=== PATIENT | female | born 1960 ===

== ENCOUNTER 2020-04-07 13:37 | Inpatient (IN) | payer MEDICARE, MEDICAID ==
[~2020-04-07] VITALS: Ht 167.6 cm; Wt 70.0 kg
[2020-04-07] MEDS ORDERED: mag hydrox/Alum hydrox/simeth 30ml oral suspension PO PRN (14:05)
[2020-04-07] MEDS ORDERED: loperamide 2mg capsule PO PRN (14:05)
[2020-04-07] MEDS ORDERED: acetaminophen 325mg tablet PO PRN (14:05)
[2020-04-07 15:59] VITALS: BP 166/86
[2020-04-07] MEDS ORDERED: NO HOME MEDS (16:08)
[2020-04-07] MEDS ORDERED: pneumococcal 23-VAL P-sac vacc 25 mcg/0.5ml vial IMVAC ONE (16:15)
--- NOTE | 2020-04-07 17:00 | NUR ---
Pt admitted at 1405 on a 5150 for grave disability from the [facility] in [place]. A welfare check found her filthy with no food or water in a trailer. Pt has been at the crisis center for a few days and apparently has cleared a bit. Pt denies suicidal thoughts. Pt does endorse some depression and anxiety and becomes tearful at times during interview. Pt denies hallucinations. Pt extremely delusional and its hard to decipher what is real and what is not. Pt is suspicious and paranoid a bit, thinking she's on a secret mission that she can't talk about. Pt cooperative with admission process.
[2020-04-07] MEDS ORDERED: NICOTINE POLACRILEX 2 MG LOZENGE BC PRN (17:40)
[2020-04-07] MEDS: nicotine 21mg patch - 24 hr TD SCH (18:18)
[2020-04-07 20:03] VITALS: BP 150/86
[2020-04-07] MEDS: LORazepam 1 MG tablet PO PRN (21:13)
--- NOTE | 2020-04-08 00:02 | NUR ---
Nursing Progress Note: Trice Legal hold: 5150 Client on involuntary status for GD/DTS. Report received from KARLOS Pérez with use of SBAR. Why are they here: Pt admitted for grave disability from the [facility] in [place]. A welfare check found her filthy with no food or water in a trailer. Pt has been at the crisis center for a few days and apparently has cleared a bit. Pt is unable to formulate a plan for food or water. She was confused and disoriented when officers contacted her with well check. Pt voices paranoid and grandiose delusions about being in a secret mission but not being able to talk about it. Assessment What has happened this shift: Pt was in her room sleeping during shift change. Pt was cooperative during 1:1 physical assessment. She denies any A/H, V/H, or depression. Pt appears somewhat anxious and emotional. Becomes teary and when asked what was making her anxious or emotional, she states I just feel really happy. She says this as she begins to cry again. She also talks about his dad and how he misses him. Ruminates about him some more. States that she doesnt think his alive any more. We went to war together and he never made it back. She says that she went to [place] war with her dad and she hasnt seen him since then. She continues to be emotional and tearful. Ativan was provided with effectiveness. She states that she is here to get medical help appears to have very poor insight. Pt was observed out of her room in community area for some time watching TV before going to sleep. S/I, H/I: Denies A/VH: Denies Sleep: Currently sleeping, see sleep assessment for total hours ADL's: Independent Group attendance: None during slitter processed film Were meds taken: Yes, only prns Any med S/E: none noter or reported Mental Status Exam Appearance: Appropriate, wearing green unit scrubs, short hair Eye contact: Direct Behavior: Cooperative, pleasant, paranoid, tearful, socializes with other patients Speech: Pressured Mood: Labile, pt states she is feeling anxious and emotional, but also states she feels happy and is tearful Affect: Incongruent with mood Thought process: Tangential Thought Content: Her dad, food, war Cognition: Alert and oriented x3, does not know why she is here Insight: Poor Judgment: Poor Interventions PRN's used: Ativan X1 Therapeutic interventions: 1:1 assessment, established rapport, provide active listening, medication administration/education/ and monitoring its effects, provide a safe and therapeutic environment, ensured contract for safety, reality orientation. Restraints/seclusion/emergency medication: N/A Justification of Continued Inpatient Treatment: pt requires interruption of current crisis, is not able to formulate a plan for food or water, and requres medication adjustments in a safe and therapeutic environment.
[2020-04-08] MEDS: acetaminophen 325mg tablet PO PRN (02:07)
[2020-04-08 07:42] VITALS: BP 151/94
[2020-04-08] MEDS ORDERED: nicotine 21mg patch - 24 hr TD SCH (08:00)
[2020-04-08] MEDS: amLODIPine 5mg tablet PO SCH (08:15)
[2020-04-08] MEDS: nicotine 21mg patch - 24 hr TD SCH (08:15)
--- NOTE | 2020-04-08 15:09 | NUR ---
Nursing Progress Note: Trice Legal hold: 5150 Client on involuntary status for GD/DTS. Report received from Rose PORRAS with use of SBAR. Why are they here: Pt admitted for grave disability from the [facility] in [place]. A welfare check found her filthy with no food or water in a trailer. Pt has been at the crisis center for a few days and apparently has cleared a bit. Pt is unable to formulate a plan for food or water. She was confused and disoriented when officers contacted her with well check. Pt voices paranoid and grandiose delusions about being in a secret mission but not being able to talk about it. Assessment What has happened this shift: Pt up and visible on the unit, interacting with select peers and staff. Pt has bright affect generally, but pt becomes tearful when discussing anything about why or how she is here in the hospital. Pt begins to talk about some of her delusions which include paranoid thoughts including that the medication she had stopped taking was poisoning her and putting holes in her heart. Pt also continues to endorse that she is on a secret mission that she cant talk about. Pt is pleasant and cooperative. Pt denies S.I./H.I. S/I, H/I: Denies A/VH: Denies Sleep: brief naps ADL's: Independent Group attendance: None during night time nanny Were meds taken: Yes Any med S/E: none noter or reported Mental Status Exam Appearance: Appropriate, wearing green unit scrubs, short hair Eye contact: Direct Behavior: Cooperative, pleasant, paranoid, tearful, socializes with other patients Speech: Pressured Mood: Labile, pt states she is feeling anxious and emotional, but also states she feels happy and is tearful Affect: Incongruent with mood Thought process: Tangential Thought Content: Her dad, food, war, paranioas Cognition: Alert and oriented x3, does not know why she is here Insight: Poor Judgment: Poor Interventions PRN's used: Therapeutic interventions: 1:1 assessment, established rapport, provide active listening, medication administration/education/ and monitoring its effects, provide a safe and therapeutic environment, ensured contract for safety, reality orientation. Restraints/seclusion/emergency medication: N/A Justification of Continued Inpatient Treatment: pt requires interruption of current crisis, is not able to formulate a plan for food or water, and requres medication adjustments in a safe and therapeutic environment.
[2020-04-08] MEDS: LORazepam 1 MG tablet PO PRN (20:11)
[2020-04-08 20:20] VITALS: BP 134/71
--- NOTE | 2020-04-09 00:54 | NUR ---
Nursing Progress Note: Trice Legal hold: 5150 Client on involuntary status for GD/DTS. Report received from Elisa PORRAS with use of SBAR. Why are they here: Pt admitted for grave disability from the [facility] in [place]. A welfare check found her filthy with no food or water in a trailer. Pt has been at the crisis center for a few days and apparently has cleared a bit. Pt is unable to formulate a plan for food or water. She was confused and disoriented when officers contacted her with well check. Pt voices paranoid and grandiose delusions about being in a secret mission but not being able to talk about it. Assessment What has happened this shift: Pt was asleep at start of the shift. Got up for snacks and watched tv in group room social with peers and staff. Pt very friendly to male staff and peers.Prn ativan for anxiety. S/I, H/I: Denies A/VH: Denies Sleep: brief naps ADL's: Independent Group attendance: None during overnight cashier Were meds taken: Yes Any med S/E: none noter or reported Mental Status Exam Appearance: Appropriate, wearing green unit scrubs, short hair Eye contact: Direct Behavior: Cooperative, pleasant, paranoid, tearful, socializes with other patients Speech: Pressured Mood: Labile, pt states she is feeling anxious and emotional, but also states she feels happy and is tearful Affect: Incongruent with mood Thought process: Tangential Thought Content: Her dad, food, war, paranioas Cognition: Alert and oriented x3, does not know why she is here Insight: Poor Judgment: Poor Interventions PRN's used: Ativan Therapeutic interventions: 1:1 assessment, established rapport, provide active listening, medication administration/education/ and monitoring its effects, provide a safe and therapeutic environment, ensured contract for safety, reality orientation. Restraints/seclusion/emergency medication: N/A Justification of Continued Inpatient Treatment: pt requires interruption of current crisis, is not able to formulate a plan for food or water, and requres medication adjustments in a safe and therapeutic environment.
[2020-04-09 07:16] VITALS: BP 137/76
[2020-04-09] MEDS: nicotine 21mg patch - 24 hr TD SCH (08:00)
[2020-04-09] MEDS: amLODIPine 5mg tablet PO SCH (08:00)
--- NOTE | 2020-04-09 10:00 | NUR ---
Group Therapy: Process Group This Clinicians goal for this process group were as follows: (1) Ask scaling questions about Patients current anxiety, depression, and irritability symptoms as a check-in. (2) Provide psychoeducation about CBT schema, presuppositions and filters through which all people view the world. (3) Discuss how thinking errors can skew the way we think, which can negatively impact our thoughts, feelings, and actions. (4) Provide psychoeducation on several different thinking errors. (5) Process Clients thoughts and reflections on this topic within the group milieu. Patient identified experiencing the following levels of anxiety, depression, and anger/irritability while present in the group milieu. Anxiety: 12/18 Depression: 12/18 Anger irritability: 12/18 Patient presented as cooperative within the group milieu. Patient presented in a crowell t-shirt and [facility] scrub pants. She had short, almost shaved hair, with paulson skin. When asked by this Clinician about her level of anxiety, Patient reported that her only problem had to do with "getting off the unit." Patient presented as subdued and nonobtrusive within the group milieu. Patient did not offer comments about the topic of thinking errors. Jeremy Lozano MA, CANDE Addendum: 04/09/20 at 1133 by Jeremy Lozano Amended: Links added.
--- NOTE | 2020-04-09 12:55 | NUR ---
Nursing Progress Note: Trice Legal hold: 5150 Client on involuntary status for GD/DTS. Report received from CRN with use of SBAR. Why are they here: Pt admitted for grave disability from the [facility] in [place]. A welfare check found her filthy with no food or water in a trailer. Pt has been at the crisis center for a few days and apparently has cleared a bit. Pt is unable to formulate a plan for food or water. She was confused and disoriented when officers contacted her with well check. Pt voices paranoid and grandiose delusions about being in a secret mission but not being able to talk about it. Assessment What has happened this shift: Patient was asleep at change of shift and up for breakfast. RN met with RN in the community room a little later. Patient denies suicidal/homicidal ideation and denies a/v hallucinations. RN asked patient what brought her here. Patient states "safety." RN asked patient what she meant by "safety". Patient stated "I have some private information for the [facility] but I don't to talk about it except with my doctor." RN explained that Ignacio Varma would be seeing him today and she could speak with him. Patient watches T.V., went to group and went outside on the patio today. No distress observed. S/I, H/I: Denies A/VH: Denies Sleep: none today ADL's: Independent Group attendance: Yes Were meds taken: Yes Any med S/E: none noted or reported Mental Status Exam Appearance: wearing a t-shirt without a bra with green scrub pants. Eye contact: Direct Behavior: Cooperative, pleasant, delusional Speech: Pressured Mood: depressed about being here Affect: flat Thought process: Linear Thought Content: wanting to speak to the doctor and going home Cognition: Alert and oriented x3, does not know why she is here Insight: Poor Judgment: Poor Interventions PRN's used: Therapeutic interventions: 1:1 assessment, established rapport, provide active listening, medication administration/education/ and monitoring its effects, provide a safe and therapeutic environment, ensured contract for safety, reality orientation. Restraints/seclusion/emergency medication: N/A Justification of Continued Inpatient Treatment: pt requires interruption of current crisis, is not able to formulate a plan for food or water, and requres medication adjustments in a safe and therapeutic environment.
[2020-04-09] MEDS ORDERED: ARIPIPRAZOLE 10 MG TABLET PO SCH (14:15)
[2020-04-09 20:00] VITALS: BP 149/95
[2020-04-09] MEDS: LORazepam 1 MG tablet PO PRN (20:25)
[2020-04-09] MEDS: acetaminophen 325mg tablet PO PRN (20:42)
--- NOTE | 2020-04-09 23:26 | NUR ---
Nursing Progress Note: Trice Legal hold: 5150 Client on involuntary status for GD/DTS. Report received from CRN with use of SBAR. Why are they here: Pt admitted for grave disability from the [facility] in [place]. A welfare check found her filthy with no food or water in a trailer. Pt has been at the crisis center for a few days and apparently has cleared a bit. Pt is unable to formulate a plan for food or water. She was confused and disoriented when officers contacted her with well check. Pt voices paranoid and grandiose delusions about being in a secret mission but not being able to talk about it. Assessment What has happened this shift: Pt was up and in group room watching tv. pt c/o a head ache prn Tylenol that was effective. Pt was social with peers specially the male peers. Paced the unit for a while then went to bed. S/I, H/I: Denies A/VH: Denies Sleep: none today ADL's: Independent Group attendance: Yes Were meds taken: Yes Any med S/E: none noted or reported Mental Status Exam Appearance: wearing a t-shirt without a bra with green scrub pants. Eye contact: Direct Behavior: Cooperative, pleasant, delusional Speech: Pressured Mood: depressed about being here Affect: flat Thought process: Linear Thought Content: wanting to speak to the doctor and going home Cognition: Alert and oriented x3, does not know why she is here Insight: Poor Judgment: Poor Interventions PRN's used: Ativan Therapeutic interventions: 1:1 assessment, established rapport, provide active listening, medication administration/education/ and monitoring its effects, provide a safe and therapeutic environment, ensured contract for safety, reality orientation. Restraints/seclusion/emergency medication: N/A Justification of Continued Inpatient Treatment: pt requires interruption of current crisis, is not able to formulate a plan for food or water, and requres medication adjustments in a safe and therapeutic environment.
[2020-04-10 08:00] VITALS: BP 131/87
[2020-04-10] MEDS ORDERED: ARIPIPRAZOLE 10 MG TABLET PO SCH (08:00)
[2020-04-10] MEDS: amLODIPine 5mg tablet PO SCH (08:21)
[2020-04-10] MEDS: nicotine 21mg patch - 24 hr TD SCH (08:24)
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
--- NOTE | 2020-04-10 15:12 | NUR ---
Nursing Progress Note: Trice Legal hold: Voluntary Client on involuntary status for GD/DTS. Report received from CRN with use of SBAR. Why are they here: Pt admitted for grave disability from the [facility] in [place]. A welfare check found her filthy with no food or water in a trailer. Pt has been at the crisis center for a few days and apparently has cleared a bit. Pt is unable to formulate a plan for food or water. She was confused and disoriented when officers contacted her with well check. Pt voices paranoid and grandiose delusions about being in a secret mission but not being able to talk about it. Assessment What has happened this shift: Patient was asleep at change of shift and up for breakfast. Patient appeared a little more relaxed today. Patient denies suicidal/homicidal ideation. Patient denies hearing voices. 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 Patient is social and talks to one female patient in particular. Patient taking several naps today and was not as social today as yesterday. Patient wants to stay her an additional 21 days, as she told Ignacio Varma. Patient to be changed to Voluntary Status. S/I, H/I: Denies A/VH: Denies Sleep: several naps today ADL's: Independent Group attendance: Yes Were meds taken: Yes Any med S/E: none noted or reported Mental Status Exam Appearance: wearing a t-shirt without a bra with green scrub pants. Eye contact: Direct Behavior: Cooperative, pleasant, delusional Speech: Pressured Mood: depressed about being here Affect: flat Thought process: Linear Thought Content: wanting to speak to the doctor and going home Cognition: Alert and oriented x3, does not know why she is here Insight: Poor Judgment: Poor Interventions PRN's used: Therapeutic interventions: 1:1 assessment, established rapport, provide active listening, medication administration/education/ and monitoring its effects, provide a safe and therapeutic environment, ensured contract for safety, reality orientation. Restraints/seclusion/emergency medication: N/A Justification of Continued Inpatient Treatment: pt requires interruption of current crisis, is not able to formulate a plan for food or water, and requres medication adjustments in a safe and therapeutic environment.
[2020-04-10] MEDS: ibuprofen 200mg tablet PO SCH (17:06)
[2020-04-10 20:49] VITALS: BP 154/60
[2020-04-10] MEDS: acetaminophen 325mg tablet PO PRN (21:16)
--- NOTE | 2020-04-10 21:17 | NUR ---
Nursing Progress Note: Trice Legal hold: Voluntary Client on involuntary status for GD/DTS. Report received from John GU with use of SBAR. Why are they here: Pt admitted for grave disability from the [facility] in [place]. A welfare check found her filthy with no food or water in a trailer. Pt has been at the crisis center for a few days and apparently has cleared a bit. Pt is unable to formulate a plan for food or water. She was confused and disoriented when officers contacted her with well check. Pt voices paranoid and grandiose delusions about being in a secret mission but not being able to talk about it. Assessment What has happened this shift: Pt requested to shower at change of shift and took a shower. She is pleasant and smiling, states she had a good day. Pt states that she didnt sleep well last night and felt like she was tossing and turning. Pt states she slept a lot today and feels rested. Pt c/o pain in her shoulder blade and bunion on her foot is aching, prn tylenol given. S/I, H/I: Denies A/VH: Denies Sleep: reports not sleeping well see sleep hours ADL's: Independent Group attendance: Yes Were meds taken: Yes Any med S/E: none noted or reported Mental Status Exam Appearance: showered wearing clean personal clothing, adequately groomed and dressed Eye contact: Direct Behavior: Cooperative, pleasant, delusional Speech: soft spoken, normal rate and rhythm Mood: smiling, happy Affect: flat Thought process: Linear Thought Content: happy to be here Cognition: Alert and oriented x3, does not know why she is here Insight: Poor Judgment: Poor Interventions PRN's used: Therapeutic interventions: 1:1 assessment, established rapport, provide active listening, medication administration/education/ and monitoring its effects, provide a safe and therapeutic environment, ensured contract for safety, reality orientation. Restraints/seclusion/emergency medication: N/A Justification of Continued Inpatient Treatment: pt requires interruption of current crisis, is not able to formulate a plan for food or water, and requres medication adjustments in a safe and therapeutic environment. Addendum: 04/11/20 at 0037 by Raissa Kelley RN pt woke stating she is feeling "stressed out and having crazy dreams" prsebastián alexander given.
[2020-04-11] MEDS: LORazepam 1 MG tablet PO PRN ×3 (00:33→22:35)
[2020-04-11] MEDS: amLODIPine 5mg tablet PO SCH (07:23)
[2020-04-11] MEDS: aripiprazole 5mg tablet PO SCH (07:23)
[2020-04-11] MEDS: nicotine 21mg patch - 24 hr TD SCH (07:24)
[2020-04-11 07:51] VITALS: BP 137/81
[2020-04-11] MEDS: ibuprofen 200mg tablet PO SCH ×3 (07:54→16:49)
--- NOTE | 2020-04-11 10:00 | NUR ---
Group Therapy: Process Group This Clinicians goals for this process group were as follows: (1) Ask scaling questions about Patients current anxiety, depression, and irritability symptoms as a check-in. (2) Share with Patients psychoeducation about the importance of being able to identify safe, and supportive people who can assist them with their mental and emotional needs. (3) Share psychoeducation on interpersonal boundaries and considerations to assist Patients in developing the ability to discern which groups and individuals will be helpful in assisting them during times of emotional escalation and crisis. (4) Review emotional relaxation techniques (5) Engage Patients in discussion of the topics discussed within the group milieu. Patient identified experiencing the following levels of anxiety, depression, and anger/irritability while present in the group milieu. Anxiety: 11/17 Depression: 10 Anger irritability: 05/17 Patient presented as cooperative within the group milieu. Patient entered the group milieu approximately during the past 15 minutes of group. She denied feeling any significant anxiety, but reported that her symptoms of irritability and depression were 7/10. This Clinician observed that Patient had a tearful expression on her face briefly as she shared her depression and irritability symptoms, but she did not verbalize what she was thinking that led to this change in her affect. Patient presented as unobtrusive in the group milieu, and did not participate in the discussion on interpersonal boundaries and safety. Jeremy Lozano MA, CANDE Addendum: 04/11/20 at 1113 by Jeremy Lozano SS Amended: Links added.
--- NOTE | 2020-04-11 17:09 | NUR ---
Nursing Progress Note: Trice Legal hold: Voluntary Client on involuntary status for GD/DTS. Report received from Yamilet GU Why are they here: Pt admitted for grave disability from the [facility] in [place]. A welfare check found her filthy with no food or water in a trailer. Pt has been at the crisis center for a few days and apparently has cleared a bit. Pt is unable to formulate a plan for food or water. She was confused and disoriented when officers contacted her with well check. Pt voices paranoid and grandiose delusions about being in a secret mission but not being able to talk about it. Assessment: What has happened this shift: Received client from [facility] shift. Client was in bed with eyes closed. Respirations were even and unlabored. No signs of distress or problems noted. Client was aroused easily for medications and she was compliant and cordial with this radio script writer. Client came to breakfast and was social with staff as well as peers. No somatic complaints voiced upon assessment. Client returned to her room to rest in bed after meal and is currently (0856 hours) resting with eyes closed. Client experienced a nightmare this shift and was very scared and emotional. She was given Ativan per orders with good effect noted. S/I, H/I: Denies A/VH: Denies Sleep: reports not sleeping well ADL's: Independent Group attendance: Yes Were meds taken: Yes Any med S/E: none noted or reported Mental Status Exam Appearance: showered wearing clean personal clothing, adequately groomed and dressed Eye contact: Direct Behavior: Cooperative, pleasant, delusional Speech: soft spoken, normal rate and rhythm Mood: smiling, happy Affect: flat Thought process: Linear Thought Content: happy to be here Cognition: Alert and oriented x3, does not know why she is here Insight: Poor Judgment: Poor Interventions PRN's used: Therapeutic interventions: 1:1 assessment, established rapport, provide active listening, medication administration/education/ and monitoring its effects, provide a safe and therapeutic environment, ensured contract for safety, reality orientation. Restraints/seclusion/emergency medication: N/A Justification of Continued Inpatient Treatment: pt requires interruption of current crisis, is not able to formulate a plan for food or water, and requres medication adjustments in a safe and therapeutic environment.
[2020-04-11 19:36] VITALS: BP 143/87
[2020-04-11] MEDS ORDERED: quetiapine 100mg tablet PO SCH (22:05)
[2020-04-11] MEDS: traZODone 50mg tablet PO SCH (22:35)
--- NOTE | 2020-04-11 22:36 | NUR ---
Nursing Progress Note: Trice Legal hold: Voluntary Client on involuntary status for GD/DTS. Report received from [facility] Why are they here: Pt admitted for grave disability from the Crisis [facility] in [place]. A welfare check found her filthy with no food or water in a trailer. Pt has been at the crisis center for a few days and apparently has cleared a bit. Pt is unable to formulate a plan for food or water. She was confused and disoriented when officers contacted her with well check. Pt voices paranoid and grandiose delusions about being in a secret mission but not being able to talk about it. Assessment: What has happened this shift: Pt was sleeping at change of shift. She woke up later in the evening and spent time socializing with other patients. Pt was pleasant calm, states her nurse told her she had a sleeping pill ordered for tonight. P/c to [facility] and seroquel was ordered. I took seroquel to patient and she states "I dont like seroquel my sister overdosed on seroquel, get me a different sleeping pill." Called [facility] back and got order for Trazadone, returned with trazadone and patient states "I was told by my nurse I'm supposed to get Ambien CR, I dont like trazadone either." Explained to pt that this is the order the provider has given, pt stated "fine, I'll take it." Pt was agitated requested Ativan PRN and assistance with her bed and she was provided with both. S/I, H/I: Denies A/VH: Denies Sleep: reports not sleeping well, sleeping prn ordered ADL's: Independent Group attendance: Yes Were meds taken: Yes Any med S/E: none noted or reported Mental Status Exam Appearance: showered wearing clean personal clothing, adequately groomed and dressed Eye contact: Direct Behavior: Cooperative, pleasant, delusional Speech: soft spoken, normal rate and rhythm Mood: smiling, happy Affect: flat Thought process: Linear Thought Content: happy to be here, became agitated over sleeping pill Cognition: Alert and oriented x3, does not know why she is here Insight: Poor Judgment: Poor Interventions PRN's used: Therapeutic interventions: 1:1 assessment, established rapport, provide active listening, medication administration/education/ and monitoring its effects, provide a safe and therapeutic environment, ensured contract for safety, reality orientation. Restraints/seclusion/emergency medication: N/A Justification of Continued Inpatient Treatment: pt requires interruption of current crisis, is not able to formulate a plan for food or water, and requres medication adjustments in a safe and therapeutic environment.
[2020-04-12 08:00] VITALS: BP 130/73
[2020-04-12] MEDS: ibuprofen 200mg tablet PO SCH ×3 (08:55→17:16)
[2020-04-12] MEDS: amLODIPine 5mg tablet PO SCH (08:56)
[2020-04-12] MEDS: aripiprazole 5mg tablet PO SCH (08:56)
[2020-04-12] MEDS: nicotine 21mg patch - 24 hr TD SCH (08:56)
--- NOTE | 2020-04-12 15:02 | NUR ---
Nursing Progress Note: Legal hold: Voluntary Client on involuntary status for GD/DTS. Report received from CHIQUITA Chung Why are they here: Pt admitted for grave disability from the Crisis Center in [place]. A welfare check found her filthy with no food or water in a trailer. Pt has been at the crisis center for a few days and apparently has cleared a bit. Pt is unable to formulate a plan for food or water. She was confused and disoriented when officers contacted her with a well check. Pt voices paranoid and grandiose delusions about being in a secret mission but not being able to talk about it. Assessment: What has happened this shift: Pt a sleep at change of shift. After breakfast she went back to bed and slept. She was up the rest of the shift socializing with both staff and peers. Later she watched TV and was observed reading in the recreation room. She reports history of insomnia and that she usually uses Ambien CR for sleep. She takes Motrin TID for generalized pain. S/I, H/I: Denies A/VH: Denies Sleep: reports not sleeping well ADL's: Independent; needs reminders and prompting Group attendance: Yes Were meds taken: Yes Any med S/E: None noted or reported Mental Status Exam Appearance: wearing hospital green scrubs Eye contact: Direct Behavior: Calm and cooperative Speech: audible, normal rate and rhythm Mood: Pleasant Affect: Flat Thought process: Linear Thought Content: Appears content Cognition: A/Ox3 Insight: Poor Judgment: Poor Interventions PRN's used: Therapeutic interventions: 1:1 assessment, provided therapeutic communication and active listening, medication administration/education/ and monitoring its effects, q15min safety checks. Restraints/seclusion/emergency medication: N/A Justification of Continued Inpatient Treatment: pt requires interruption of current crisis, is not able to formulate a plan for food or water, and requires medication adjustments in a safe and therapeutic environment.
[2020-04-12 19:39] VITALS: BP 144/85
[2020-04-12] MEDS: traZODone 50mg tablet PO SCH (20:37)
[2020-04-12] MEDS: LORazepam 1 MG tablet PO PRN (22:04)
--- NOTE | 2020-04-13 00:06 | NUR ---
Nursing Progress Note: Trice Legal hold: Voluntary Client on involuntary status for GD/DTS. Report received from [facility] Why are they here: Pt admitted for grave disability from the Crisis [facility] in [place]. A welfare check found her filthy with no food or water in a trailer. Pt has been at the crisis center for a few days and apparently has cleared a bit. Pt is unable to formulate a plan for food or water. She was confused and disoriented when officers contacted her with well check. Pt voices paranoid and grandiose delusions about being in a secret mission but not being able to talk about it. Assessment: What has happened this shift: Pt was in community room socializing with other patients appropriately during shift change. Pt was cooperative during 1:1 physical assessment and took her Trazodone. She does state that this gives her a headache but will take it anyway since she slept all day. Pt denies any S/I, H/I, A/VH or anxiety. Pt states that she is just worried because she wants to get a hold of Lexy to lock up her jewelry. 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 Pt becomes teary and begins to cry when talking about her medical issues. She states that she is not happy with her doctors because they never listen to her concerns. Pts mood is labile as she begins to cry out of nowhere. Pt spend some time watching TV but she did eventually complained of a 6/10 anxiety and requested Ativan. This was given with good effect as pt retired to bed after this. S/I, H/I: Denies A/VH: Denies Sleep: Currently sleeping, see sleep assessment for total hours ADL's: Independent, does require so direction from staff Group attendance: Yes Were meds taken: Yes Any med S/E: patient reports headache from Tazodone Mental Status Exam Appearance: Appropriate, wearing green unit scrubs, short hair Eye contact: Good, Direct Behavior: Cooperative, pleasant, socializing, somewhat anxious Speech: normal rate and rhythm Mood: Labile Affect: Blunted with intermittent brightening Thought process: Circumstantial, does have some delusions Thought Content: Living situation, sleep, medical issues Cognition: Alert and oriented x3 Insight: Poor Judgment: Poor Interventions PRN's used: None Therapeutic interventions: 1:1 assessment, established rapport, provide active listening, medication administration/education/ and monitoring its effects, provide a safe and therapeutic environment, ensured contract for safety, reality orientation. Restraints/seclusion/emergency medication: N/A Justification of Continued Inpatient Treatment: pt requires interruption of current crisis, is not able to formulate a plan for food or water, and requres medication adjustments in a safe and therapeutic environment.
[2020-04-13] MEDS: aripiprazole 5mg tablet PO SCH (07:49)
[2020-04-13] MEDS: nicotine 21mg patch - 24 hr TD SCH (07:49)
[2020-04-13] MEDS: amLODIPine 5mg tablet PO SCH (07:49)
[2020-04-13 08:00] VITALS: BP 125/85
[2020-04-13] MEDS: ibuprofen 200mg tablet PO SCH ×3 (08:40→17:14)
--- NOTE | 2020-04-13 10:26 | NUR ---
Initial: Pt admit with schizophrenia. Currently on a regular diet documented with 75-100% PO intake meeting nutrient needs. LBM 6/ however documented as small. PRN bowel care available, not documented to be administered yet. D/w dietary to send prunes/prune juice with next meal to prevent constipation. No edema or wounds. No nutrition diagnosis at this time. Will continue to follow. Recommendations: 1) Continue regular diet 2) Bowel care PRN; monitor need for additional 3) Scaled weights per rx Addendum: 04/13/20 at [address] Amended: Links added.
--- NOTE | 2020-04-13 11:50 | NUR ---
Nursing Progress Note: Legal hold: Voluntary Client on involuntary status for GD/DTS. Report received from CHIQUITA Chung Why are they here: Pt admitted for grave disability from the Crisis Center in [place]. A welfare check found her filthy with no food or water in a trailer. Pt has been at the crisis center for a few days and apparently has cleared a bit. Pt is unable to formulate a plan for food or water. She was confused and disoriented when officers contacted her with a well check. Pt voices paranoid and grandiose delusions about being in a secret mission but not being able to talk about it. Assessment: What has happened this shift: Pt a sleep at change of shift. After breakfast she returned to bed and slept. She was up for group. Then spent time socializing w/a female peer and pacing the halls w/her. . She takes Motrin TID for generalized pain. She is worried about 2 lumps on her breast and one on her back. Education and referrals provided. Pt acknowledges understanding to follow up with care. She reports she is sleeping "better, not all the way through the night, though" with the Trazadone and Ativan. S/I, H/I: Denies A/VH: Denies Sleep: slept some in the morning ADL's: Independent; needs reminders and prompting Group attendance: Yes Were Meds taken: Yes Any med S/E: None noted or reported Mental Status Exam Appearance: Needs a shower and clean scrubs Eye contact: Direct Behavior: Calm and cooperative Speech: audible, normal rate and rhythm Mood: Pleasant Affect: Flat Thought process: Linear Thought Content: Appears content Cognition: A/Ox3 Insight: Poor Judgment: Poor Interventions PRN's used: Therapeutic interventions: 1:1 assessment, provided therapeutic communication and active listening, medication administration/education/ and monitoring its effects, q15min safety checks. Restraints/seclusion/emergency medication: N/A Justification of Continued Inpatient Treatment: pt requires interruption of current crisis, is not able to formulate a plan for food or water, and requires medication adjustments in a safe and therapeutic environment.
[2020-04-13] MEDS: LORazepam 1 MG tablet PO PRN (18:42)
[2020-04-13 19:46] VITALS: BP 145/75
[2020-04-13] MEDS: traZODone 50mg tablet PO SCH (20:20)
[2020-04-13] MEDS: magnesium hydroxide 30ml (MOM) UD suspension PO PRN (20:34)
--- NOTE | 2020-04-14 00:07 | NUR ---
Nursing Progress Note: Trice Legal hold: Voluntary Client on involuntary status for GD/DTS. Report received from RICCARDO Macdonald with help from HARSH. Why are they here: Pt admitted for grave disability from the Crisis Center in [place]. A welfare check found her filthy with no food or water in a trailer. Pt has been at the crisis center for a few days and apparently has cleared a bit. Pt is unable to formulate a plan for food or water. She was confused and disoriented when officers contacted her with well check. Pt voices paranoid and grandiose delusions about being in a secret mission but not being able to talk about it. Assessment: What has happened this shift: Pt was visible in the unit during shift change. She approached this RN and requested something for her anxiety. When asked what was making her anxious, she states Im happy, I just feel really tired, I want to go watch another movie but I dont know if I can sit through it. Ativan was given with effectiveness. Pt was cooperative during 1:1 physical and took her Trazodone. She also c/o not having a bm for some time and MOM was provided. Pt any S/I, H/I, AV/H, or depression. She does continue to make delusional statements and talks about how she was pre-med. She states that she had to withdraw because her kids were being kidnapped. She was however able to get them back according to her. She is still ruminating about her medical issues and wanting to find a better provider. There were no behavioral issues and patient did not become teary or began to cry per this shift. She retired to bed after she ate her snack. S/I, H/I: Denies A/VH: Denies Sleep: Currently sleeping, see sleep assessment for total hours ADL's: Independent, does require so direction from staff Group attendance: Yes Were meds taken: Yes Any med S/E: None reported or observed this shift Mental Status Exam Appearance: Appropriate, wearing green unit scrubs, short hair Eye contact: Good, Direct Behavior: Cooperative, pleasant, socializing, somewhat anxious Speech: normal rate and rhythm Mood: "I'm good." pt appears depressed Affect: Blunted with intermittent brightening Thought process: Circumstantial, does have some delusions Thought Content: Living situation, sleep, medical issues, her Cognition: Alert and oriented x3 Insight: Poor Judgment: Poor Interventions PRN's used: Ativan X1 Therapeutic interventions: 1:1 assessment, established rapport, provide active listening, medication administration/education/ and monitoring its effects, provide a safe and therapeutic environment, ensured contract for safety, reality orientation. Restraints/seclusion/emergency medication: N/A Justification of Continued Inpatient Treatment: pt requires interruption of current crisis, is not able to formulate a plan for food or water, and requres medication adjustments in a safe and therapeutic environment.
[2020-04-14 07:35] VITALS: BP 136/79
[2020-04-14] MEDS: ibuprofen 200mg tablet PO SCH ×3 (08:07→17:37)
[2020-04-14] MEDS: aripiprazole 5mg tablet PO SCH (08:07)
[2020-04-14] MEDS: amLODIPine 5mg tablet PO SCH (08:07)
[2020-04-14] MEDS: nicotine 21mg patch - 24 hr TD SCH (08:11)
[2020-04-14] MEDS: magnesium hydroxide 30ml (MOM) UD suspension PO PRN (14:24)
[2020-04-14] MEDS: LORazepam 1 MG tablet PO PRN ×2 (14:24→21:13)
--- NOTE | 2020-04-14 15:02 | NUR ---
Nursing Progress Note: Legal hold: Voluntary Client on involuntary status for GD/DTS. Report received from CHIQUITA March Why are they here: Pt admitted for grave disability from the Crisis Center in [place]. A welfare check found her filthy with no food or water in a trailer. Pt has been at the crisis center for a few days and apparently has cleared a bit. Pt is unable to formulate a plan for food or water. She was confused and disoriented when officers contacted her with a well check. Pt voices paranoid and grandiose delusions about being in a secret mission but not being able to talk about it. Assessment: What has happened this shift: Pt sitting in the chair in her room at the start of shift. She participated in a morning group then later was observed sitting next to a male peer in the Rec Rm watching TV and conversing w/others. She reports doing much better, Im getting more sleep. Pt is having her medications adjusted for stabilization. Abilify was increased yesterday. She reports a small BM this morning. MOM given. S/I, H/I: Denies A/VH: Denies Sleep: She did not nap today. ADL's: She put on clean scrubs & took a bed bath in her room. Group attendance: Yes Were Meds taken: Yes Any med S/E: None noted or reported Mental Status Exam Appearance: Bed Bath; clean scrubs Eye contact: Direct Behavior: Cooperative w/slight paranoia w/others Speech: audible, normal rate and rhythm Mood: Pleasant; Delusional Affect: Constricted w/brightening Thought process: Linear Thought Content: Appears content Cognition: A/Ox3 Insight: Poor Judgment: Poor Interventions PRN's used: ANU [employer] Therapeutic interventions: 1:1 assessment, provided therapeutic communication and active listening, medication administration/education/ and monitoring its effects, q15min safety checks. Restraints/seclusion/emergency medication: N/A Justification of Continued Inpatient Treatment: pt requires interruption of current crisis, is not able to formulate a plan for food or water, and requires medication adjustments in a safe and therapeutic environment.
[2020-04-14 19:41] VITALS: BP 124/66
[2020-04-14] MEDS: traZODone 50mg tablet PO SCH (21:12)
--- NOTE | 2020-04-15 00:02 | NUR ---
Nursing Progress Note: Trice Legal hold: Voluntary Client on involuntary status for GD/DTS. Report received from RICCARDO Macdonald with help from HARSH. Why are they here: Pt admitted for grave disability from the Crisis Center in [place]. A welfare check found her filthy with no food or water in a trailer. Pt has been at the crisis center for a few days and apparently has cleared a bit. Pt is unable to formulate a plan for food or water. She was confused and disoriented when officers contacted her with well check. Pt voices paranoid and grandiose delusions about being in a secret mission but not being able to talk about it. Assessment: What has happened this shift: Pt is pacing the isles during shift change. Appears calm. Pt states that she was happy that she had a good night sleep last night. She said she had a pretty good day slept most of the day, watched movies. Goes on to talk about how at home she goes to bed usually at 1 in the morning, "sometimes I just get up and go for a walk." Pt denies any anxiety as of right now. She appears less teary and more congruent with her mood, smiling and laughing, more linear. Pt was cooperative during 1:1 physical assessment and took her trazodone. Later on pt c/o 8/10 anxiety and Ativan was administered with effectiveness. Pt did report tremors and drooling. This RN also observed pt as she was sitting and there were bilateral arm tremors as well as jaw tremors. Pt denies any tremors prior to taking medications. S/I, H/I: Denies A/VH: Denies Sleep: Currently sleeping, see sleep assessment for total hours ADL's: Independent, does require so direction from staff Group attendance: Yes Were meds taken: Yes Any med S/E: PT reports Tremors and drooling, could be dyskinesia from Abilify Mental Status Exam Appearance: Appropriate, wearing green unit scrubs, short hair Eye contact: Good, Direct Behavior: Cooperative, pleasant, socializing appropriately Speech: normal rate and rhythm Mood: Anxious, fatigued Affect: Blunted with intermittent brightening Thought process: Circumstantial Thought Content: Living situation, sleep, medication Cognition: Alert and oriented x3 Insight: Poor Judgment: Poor Interventions PRN's used: Ativan X1 Therapeutic interventions: 1:1 assessment, established rapport, provide active listening, medication administration/education/ and monitoring its effects, provide a safe and therapeutic environment, ensured contract for safety, reality orientation. Restraints/seclusion/emergency medication: N/A Justification of Continued Inpatient Treatment: pt requires interruption of current crisis, is not able to formulate a plan for food or water, and requres medication adjustments in a safe and therapeutic environment.
[2020-04-15] MEDS: nicotine 21mg patch - 24 hr TD SCH (07:52)
[2020-04-15] MEDS: ibuprofen 200mg tablet PO SCH ×3 (07:52→17:11)
[2020-04-15] MEDS: aripiprazole 5mg tablet PO SCH (07:52)
[2020-04-15] MEDS: amLODIPine 5mg tablet PO SCH (07:52)
[2020-04-15 08:14] VITALS: BP 138/74
--- NOTE | 2020-04-15 09:43 | NUR ---
Called [facility] (ph# [phone]) to see if they have any contact information (address or phone number for Lexy aBin). They have Trice listed as homeless. Provided a phone number which is out of service (ph# [phone]). Trice can walk in to [facility] for services on Wed and Wed at 8:30 AM and - at 12:30 PM. She is not currently connected to services. CANDE Razo
--- NOTE | 2020-04-15 14:14 | NUR ---
Nursing Progress Note: Legal hold: Voluntary Client on involuntary status for GD/DTS. Report received from CHIQUITA March Why are they here: Pt admitted for grave disability from the Crisis Center in [place]. A welfare check found her filthy with no food or water in a trailer. Pt has been at the crisis center for a few days and apparently has cleared a bit. Pt is unable to formulate a plan for food or water. She was confused and disoriented when officers contacted her with a well check. Pt voices paranoid and grandiose delusions about being in a secret mission but not being able to talk about it. Assessment: What has happened this shift: Pt seen by a hospitalist today. She was told she should see a PMD regarding the lumps on her breast and the one on her back. Pt slept more today. Again she reported, "a small BM that was hard." MOM given. 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 Later I overheard her tell another pt, "I only have one kidney." S/I, H/I: Denies A/VH: Denies Sleep: Slept more today ADL's: Independent Group attendance: Yes Were Meds taken: Yes Any med S/E: None noted or reported Mental Status Exam Appearance: Scrubs Eye contact: Direct Behavior: Cooperative, Paranoid/Delusional Speech: audible, normal rate and rhythm Mood: Pleasant; Delusional Affect: Constricted w/brightening Thought process: Linear Thought Content: Appears content Cognition: A/Ox3 Insight: Poor Judgment: Poor Interventions PRN's used: ANU [employer] Therapeutic interventions: 1:1 assessment, provided therapeutic communication and active listening, provided medication administration/education/ and monitoring its effects, encouraged her to shower and socialize w/peers, q15min safety checks. Restraints/seclusion/emergency medication: N/A Justification of Continued Inpatient Treatment: pt requires interruption of current crisis, is not able to formulate a plan for food or water, and requires medication adjustments in a safe and therapeutic environment.
[2020-04-15] MEDS: LORazepam 1 MG tablet PO PRN ×2 (14:22→20:48)
[2020-04-15] MEDS: magnesium hydroxide 30ml (MOM) UD suspension PO PRN (14:29)
[2020-04-15 19:45] VITALS: BP 148/90
[2020-04-15] MEDS: traZODone 50mg tablet PO SCH (20:48)
--- NOTE | 2020-04-15 20:51 | NUR ---
Nursing Progress Note: Legal hold: Voluntary Client on involuntary status for GD/DTS. Report received from CHIQUITA March Why are they here: Pt admitted for grave disability from the Crisis Center in [place]. A welfare check found her filthy with no food or water in a trailer. Pt has been at the crisis center for a few days and apparently has cleared a bit. Pt is unable to formulate a plan for food or water. She was confused and disoriented when officers contacted her with a well check. Pt voices paranoid and grandiose delusions about being in a secret mission but not being able to talk about it. Assessment: What has happened this shift: Pt was in her room at change of shift, states she didnt have a good day and seems somewhat irritable. She gave short answers to questions but had no requests. She got up and socialized with peers and was observed laughing and smiling and spirits seemed to have lifted later in the evening. She requested an ativan at bedtime stating she felt anxious as well as trazadone to help with sleep. S/I, H/I: Denies A/VH: Denies Sleep: See sleep hours ADL's: Independent Group attendance: Yes Were Meds taken: Yes Any med S/E: None noted or reported Mental Status Exam Appearance: Scrubs Eye contact: Direct Behavior: Cooperative, Paranoid/Delusional Speech: audible, normal rate and rhythm Mood: irritable; Delusional Affect: Constricted Thought process: Linear Thought Content: Appears content Cognition: A/Ox3 Insight: Poor Judgment: Poor Interventions PRN's used: Ativan, trazadone Therapeutic interventions: 1:1 assessment, provided therapeutic communication and active listening, provided medication administration/education/ and monitoring its effects, encouraged her to shower and socialize w/peers, q15min safety checks. Restraints/seclusion/emergency medication: N/A Justification of Continued Inpatient Treatment: pt requires interruption of current crisis, is not able to formulate a plan for food or water, and requires medication adjustments in a safe and therapeutic environment.
--- NOTE | 2020-04-15 21:01 | NUR ---
Nicotine patch removed
[2020-04-16] MEDS: nicotine 21mg patch - 24 hr TD SCH (07:21)
[2020-04-16] MEDS: amLODIPine 5mg tablet PO SCH (07:21)
[2020-04-16 07:48] VITALS: BP 133/76
[2020-04-16] MEDS ORDERED: aripiprazole 5mg tablet PO SCH (08:00)
[2020-04-16] MEDS: ibuprofen 200mg tablet PO SCH ×3 (08:21→17:34)
--- NOTE | 2020-04-16 10:00 | NUR ---
Group Therapy: Process Group This Clinicians goals for this process group were as follows: (1) Ask scaling questions about patients current anxiety, depression, and irritability symptoms as a check-in. (2) Share psychoeducation about emotional/situational triggers as they relate to the onset of unwanted mental health symptoms. (3) Identify examples of emotional/situational triggers within the group milieu. (4) Share psychoeducation on interventions as tools to reduce emotional escalation. (5) Identify several interventions within the group milieu that patients may utilizing in reducing emotional escalation caused by emotional/situational triggers. (6) Engage patients in discussion of the topics shared within the group milieu. Patient identified experiencing the following levels of anxiety, depression, and anger/irritability while present in the group milieu. Anxiety: 06/17 Depression: 02/15 Anger/irritability: 03/17 Patient presented as open and cooperative within the group milieu. Patient was dressed in [facility] scrubs. Patient arrived to the group milieu approximately 30 minutes into the one hour group. She presented as verbally engaged, and spoke out loud to make contributions when this Clinician wrote on the white board about thoughts that one thinks, and feelings that one feels in their body when one becomes emotionally escalated by a situational trigger. Patient presented as unobtrusive within the group milieu. Jeremy Lozano MA, CANDE Addendum: 04/16/20 at 1114 by Jeremy Lozano SS Amended: Links added.
[2020-04-16] MEDS: LORazepam 1 MG tablet PO PRN (13:32)
--- NOTE | 2020-04-16 15:21 | NUR ---
Nursing Progress Note: Legal hold: Voluntary Client on involuntary status for GD/DTS. Report received from Yamilet cash analyst Why are they here: Pt admitted for grave disability from the Crisis Center in [place]. A welfare check found her filthy with no food or water in a trailer. Pt has been at the crisis center for a few days and apparently has cleared a bit. Pt is unable to formulate a plan for food or water. She was confused and disoriented when officers contacted her with a well check. Pt voices paranoid and grandiose delusions about being in a secret mission but not being able to talk about it. Assessment: What has happened this shift: Patient is resting in bed peacefully at change of shift. She is pleasant and cooperative with care and takes her medication a ordered without incident. She isolates in the morning and then is seen sitting in the small TV room, socializing with peers and staff. She is labile and goes from being happy and smiling to tearful within seconds. She denies SI/HI, A/VH. She requests some clothing from the donated clothing closet. She is seen ambulating in the halls. She makes some grandiose statements like "I invented that", referring to an item that one of her peers was speaking about. S/I, H/I: Denies A/VH: Denies Sleep: rests intermittently throughout the day. ADL's: Independent Group attendance: Yes Were Meds taken: Yes Any med S/E: None noted or reported Mental Status Exam Appearance: Scrub pants with a t-shirt Eye contact: Direct Behavior: Cooperative, Paranoid/Delusional Speech: audible, normal rate and rhythm Mood: Pleasant; Delusional Affect: Constricted w/brightening, labile with bouts of tearfulness Thought process: Linear Thought Content: Appears content Cognition: A/Ox3 Insight: Poor Judgment: Poor Interventions PRN's used: Ativan Therapeutic interventions: 1:1 assessment, provided therapeutic communication and active listening, provided medication administration/education/ and monitoring its effects, encouraged her to shower and socialize w/peers, q15min safety checks. Restraints/seclusion/emergency medication: N/A Justification of Continued Inpatient Treatment: pt requires interruption of current crisis, is not able to formulate a plan for food or water, and requires medication adjustments in a safe and therapeutic environment.
[2020-04-16 20:00] VITALS: BP 125/78
[2020-04-16] MEDS: traZODone 50mg tablet PO SCH (20:35)
[2020-04-16] MEDS: LORazepam 0.5 MG tablet PO PRN (20:56)
[2020-04-16] MEDS: docusate sod 100mg capsule PO SCH (20:57)
--- NOTE | 2020-04-16 21:21 | NUR ---
Nicotine patch removed
--- NOTE | 2020-04-16 21:22 | NUR ---
Nursing Progress Note: Legal hold: Voluntary Client on involuntary status for GD/DTS. Report received from [employer] logistics center manager Why are they here: Pt admitted for grave disability from the Crisis Center in [place]. A welfare check found her filthy with no food or water in a trailer. Pt has been at the crisis center for a few days and apparently has cleared a bit. Pt is unable to formulate a plan for food or water. She was confused and disoriented when officers contacted her with a well check. Pt voices paranoid and grandiose delusions about being in a secret mission but not being able to talk about it. Assessment: What has happened this shift: Patient was napping in her bed at change of shift. She states he day was not so good, stating she wet the bed last night because she had too much of a sleeping pill. Pt states she wants more ativan and less trazadone. Pt demanded to know why her nurse didnt put that she wet the bed in her note. I asked who helped her change her sheets and she reported she did this herself with no help. Pt states she wants a stronger medication "for anxiety to help me sleep but not klonopin because that's too hard to get off." Suggested pt use her call light if she does wet her bed in the future so we can clean sheets out of the locked clean utility for her. Its unclear if this is a delusion or if someone did in fact get clean sheets for her this morning. Pt c/o constipation, colace was given. Pt denies s/i, h/i and denies a/vh. S/I, H/I: Denies A/VH: Denies Sleep: napping at change of shift, reports sleeping to deeply that she wet her bed ADL's: Independent Group attendance: spent time socializing during snack Were Meds taken: Yes Any med S/E: sleeping too deeply and wetting the bed was reported Mental Status Exam Appearance: Scrub pants with a t-shirt Eye contact: Direct Behavior: Cooperative, Paranoid/Delusional Speech: audible, normal rate and rhythm Mood: Pleasant; Delusional Affect: Constricted w/brightening, labile with bouts of tearfulness Thought process: Linear Thought Content: medication Cognition: A/Ox3 Insight: Poor Judgment: Poor Interventions PRN's used: Ativan, Therapeutic interventions: 1:1 assessment, provided therapeutic communication and active listening, provided medication administration/education/ and monitoring its effects, encouraged her to shower and socialize w/peers, q15min safety checks. Restraints/seclusion/emergency medication: N/A Justification of Continued Inpatient Treatment: pt requires interruption of current crisis, is not able to formulate a plan for food or water, and requires medication adjustments in a safe and therapeutic environment.
[2020-04-17 07:24] VITALS: BP 127/75
[2020-04-17] MEDS: docusate sod 100mg capsule PO SCH ×2 (08:01→19:28)
[2020-04-17] MEDS: aripiprazole 5mg tablet PO SCH (08:01)
[2020-04-17] MEDS: amLODIPine 5mg tablet PO SCH (08:01)
[2020-04-17] MEDS: nicotine 21mg patch - 24 hr TD SCH (08:01)
[2020-04-17] MEDS: LORazepam 0.5 MG tablet PO PRN ×3 (08:03→22:01)
[2020-04-17] MEDS: ibuprofen 200mg tablet PO SCH ×2 (08:03→11:38)
--- NOTE | 2020-04-17 12:29 | NUR ---
Nursing Progress Note: Legal hold: Voluntary Client on involuntary status for GD/DTS. Report received from Bertha Woodard RN Why are they here: Pt admitted for grave disability from the Crisis Center in [place]. A welfare check found her filthy with no food or water in a trailer. Pt has been at the crisis center for a few days and apparently has cleared a bit. Pt is unable to formulate a plan for food or water. She was confused and disoriented when officers contacted her with a well check. Pt voices paranoid and grandiose delusions about being in a secret mission but not being able to talk about it. Assessment: What has happened this shift: Patient is resting in bed peacefully at change of shift. She is pleasant and cooperative with care and takes her medication a ordered without incident. She was seen up in the day room in the morning before breakfast, interacting with peers. She is also seen exercising on the stationary bike. She reports anxiety and PRN lorazepam is given with moderate results and proceeds to isolate after this in her room. She reports that she has one kidney and is concerned about medications that are metabolized in the kidneys. Spoke to Dr. Ross who ordered to stop the ibuprofen order. She remains labile and goes from being happy and smiling to tearful within seconds. She also has some moments of agitation. Dr. Ross states he will also be starting an antidepressant for this patient as she mainly reports sadness r/t suicide of sister. She denies SI/HI, A/VH. She eats her meals in the group room. S/I, H/I: Denies A/VH: Denies Sleep: rests intermittently throughout the day, isolates. ADL's: Independent Group attendance: Yes Were Meds taken: Yes Any med S/E: None noted or reported Mental Status Exam Appearance: Scrub pants with a t-shirt Eye contact: Direct Behavior: isolative, Paranoid/Delusional Speech: audible, normal rate and rhythm Mood: Pleasant; Delusional, depressed Affect: Constricted, labile with bouts of tearfulness and agitation Thought process: Linear Thought Content: Appears content Cognition: A/Ox3 Insight: Poor Judgment: Poor Interventions PRN's used: Ativan Therapeutic interventions: 1:1 assessment, provided therapeutic communication and active listening, provided medication administration/education/ and monitoring its effects, encouraged her to shower and socialize w/peers, q15min safety checks. Restraints/seclusion/emergency medication: N/A Justification of Continued Inpatient Treatment: pt requires interruption of current crisis, is not able to formulate a plan for food or water, and requires medication adjustments in a safe and therapeutic environment.
[2020-04-17] MEDS ORDERED: venlafaxine XR 37.5mg cap (Q24H) PO ONE (18:25)
[2020-04-17] MEDS ORDERED: docusate sod 100mg capsule PO ONE (18:40)
[2020-04-17 20:39] VITALS: BP 165/88
[2020-04-17] MEDS: traZODone 50mg tablet PO SCH (21:16)
--- NOTE | 2020-04-17 22:12 | NUR ---
Nursing Progress Note: Legal hold: Voluntary Client on involuntary status for GD/DTS. Report received from: stayed over from the day shift Why are they here: Pt admitted for grave disability from the Crisis Center in [place]. A welfare check found her filthy with no food or water in a trailer. Pt has been at the crisis center for a few days and apparently has cleared a bit. Pt is unable to formulate a plan for food or water. She was confused and disoriented when officers contacted her with a well check. Pt voices paranoid and grandiose delusions about being in a secret mission but not being able to talk about it. Assessment: What has happened this shift: Patient is seen up in the group room, socializing with peers. She remains anxious and labile, seen being tearful and then brightening seconds later. First dose of Effexor given this shift. Patient c/o anxiety and received PRN Ativan. Patient states that she would like the provider to change her Ativan order to Q 4 hours PRN because, "That is when I start feeling anxious again, 4 hours in". She eats snack in the group room. Denies SI/HI, A/VH. She is now resting in bed peacefully. S/I, H/I: Denies A/VH: Denies Sleep: resting currently in bed. ADL's: Independent Group attendance: N/A, seen socializing in the group room after dinner Were Meds taken: Yes Any med S/E: None noted or reported Mental Status Exam Appearance: Scrub pants with a t-shirt Eye contact: Direct Behavior: isolative, Paranoid/Delusional Speech: audible, normal rate and rhythm Mood: Pleasant; Delusional, depressed Affect: Constricted, labile with bouts of tearfulness and agitation Thought process: Linear Thought Content: Appears content Cognition: A/Ox3 Insight: Poor Judgment: Poor Interventions PRN's used: Ativan Therapeutic interventions: 1:1 assessment, provided therapeutic communication and active listening, provided medication administration/education/ and monitoring its effects, encouraged her to shower and socialize w/peers, q15min safety checks. Restraints/seclusion/emergency medication: N/A Justification of Continued Inpatient Treatment: pt requires interruption of current crisis, is not able to formulate a plan for food or water, and requires medication adjustments in a safe and therapeutic environment.
[2020-04-18 07:47] VITALS: BP 145/82
[2020-04-18] MEDS ORDERED: venlafaxine XR 37.5mg cap (Q24H) PO SCH (08:00)
[2020-04-18] MEDS: aripiprazole 5mg tablet PO SCH (08:02)
[2020-04-18] MEDS: amLODIPine 5mg tablet PO SCH (08:02)
[2020-04-18] MEDS: docusate sod 100mg capsule PO SCH ×2 (08:02→20:28)
[2020-04-18] MEDS: nicotine 21mg patch - 24 hr TD SCH (08:15)
--- NOTE | 2020-04-18 08:34 | NUR ---
DISCHARGE PLANNING Trice reported she is planning on returning to the home she was staying in prior to admission. She has a friend that is going to go check to ensure her belongings are still there. She reported if she is unable to stay at the house she can stay with a friend. Encouraged her to connect to services at [facility] for follow up and for assistance with housing. CANDE Razo
--- NOTE | 2020-04-18 10:00 | NUR ---
Group Therapy: Process Group Sha Clinicians goals for this process group were as follows: (1) Ask scaling questions about patients current anxiety, depression, and irritability symptoms as a check-in. (2) Share psychoeducation about emotional relaxation techniques with patients, including information on: mindfulness, meditation controlled breathing, progressive muscle relaxation, guided visualization. (3) Model and practice controlled breathing, progressive muscle relaxation, and guided visualization with patients within the group milieu. (4) Process patients comments and reflections on the before-mentioned activities after they have participated in them. Patient identified experiencing the following levels of anxiety, depression, and anger/irritability while present in the group milieu. Anxiety: 08/17 Depression: 04/17 Anger/irritability: 06/17 Patient presented as open and cooperative within the group milieu. Patient was dressed in a crowell Snoopy t-shirt from the [employer], and a burgundy knee-length dress. Patient arrived in the group milieu about 40 minutes after the start of the process group. Patient reported experiencing high symptoms of anxiety, depression and irritability, only saying that her heightened symptoms had something to do with "Personal reasons." One one occasion she stood and walked around the room, stating that she needed to do so because she felt anxious. Patient participated briefly in the meditation activity at the end of the session that this Clinician guided the patients through. At the end of the session Patient reported that her anxiety level decreased to a 7/10, and her irritability level decreased to a 6/10. Patient presented as nonobtrusive within the group milieu. Jeremy Lozano MA, CANDE Addendum: 04/18/20 at 1114 by Jeremy Lozano Amended: Links added.
[2020-04-18] MEDS: magnesium hydroxide 30ml (MOM) UD suspension PO PRN (11:27)
[2020-04-18] MEDS: LORazepam 1 MG tablet PO PRN ×2 (11:27→19:34)
[2020-04-18] MEDS: acetaminophen 325mg tablet PO PRN (15:53)
--- NOTE | 2020-04-18 17:57 | NUR ---
Nursing Progress Note: Legal hold: Voluntary Client on involuntary status for GD/DTS. Report received from Bertha Woodard RN Why are they here: Pt admitted for grave disability from the Crisis Center in [place]. A welfare check found her filthy with no food or water in a trailer. Pt has been at the crisis center for a few days and apparently has cleared a bit. Pt is unable to formulate a plan for food or water. She was confused and disoriented when officers contacted her with a well check. Pt voices paranoid and grandiose delusions about being in a secret mission but not being able to talk about it. Assessment: What has happened this shift: Received pt. sleeping in bed at change of shift. Pt. took medications and ate all meals in community room. Pt. napped once in the morning and once in the afternoon. 1:1 done at bedside. Pt. denies SI/HI, A/V hallucinations. Pt. c/o back pain and given Tylenol with good effect. Pt. requested anxiolytic and received Ativan 0.5mg po with good effect. Pt. c/o back pain in afternoon and received Tylenol again. Pt. requesting something stronger for pain, pt. is also requesting a XRAY be taken of her back. RN contacted pt.s provider with pt.s request. Pt. seen in community room watching music videos and heard singing. Pt. socializing with peers. S/I, H/I: Denies A/VH: Denies Sleep: Rests intermittently throughout the day, socializes with peers. ADL's: Independent Group attendance: Yes Were Meds taken: Yes Any med S/E: None noted or reported Mental Status Exam Appearance: Shaved head, street clothes Eye contact: Direct Behavior: Social, fatigued. Speech: audible, normal rate and rhythm Mood: Euthymic Affect: Congruent with mood Thought process: Linear Thought Content: Appears content Cognition: A/Ox3 Insight: Poor Judgment: Poor Interventions PRN's used: Ativan x1, Tylenol x2 Therapeutic interventions: 1:1 assessment, provided therapeutic communication and active listening, provided medication administration/education/ and monitoring its effects, encouraged her to shower and socialize w/peers, q15min safety checks. Restraints/seclusion/emergency medication: N/A Justification of Continued Inpatient Treatment: pt requires interruption of current crisis, is not able to formulate a plan for food or water, and requires medication adjustments in a safe and therapeutic environment.
[2020-04-18 19:00] VITALS: BP 160/74
[2020-04-18 19:53] VITALS: BP 160/74
[2020-04-18] MEDS: traZODone 50mg tablet PO SCH (20:28)
--- NOTE | 2020-04-19 | NUR ---
Nursing Progress Note: Legal hold: Voluntary Client on involuntary status for GD/DTS. Report received from: RICCARDO Pérez with help from SBHUNTER Why are they here: Pt admitted for grave disability from the Crisis Center in [place]. A welfare check found her filthy with no food or water in a trailer. Pt has been at the crisis center for a few days and apparently has cleared a bit. Pt is unable to formulate a plan for food or water. She was confused and disoriented when officers contacted her with a well check. Pt voices paranoid and grandiose delusions about being in a secret mission but not being able to talk about it. Assessment: What has happened this shift: Pt was in recreation room watching TV during shift change, socializing appropriately with other patients. Pt requested something for anxiety and Ativan was given with good effect. Pt was cooperative during 1:1 physical assessment and took all her meds. She states that she had an okay day, just had been feeling somewhat anxious about going home. She denies any S/I, H/I, A/VH. She states that she might leave tomorrow and that her plan is to return to the same place she was living in. She c/o pain but when this RN offered Tylenol, she states that she wants something stronger, however there is nothing else available for her. She retired to bed after she received her medications. S/I, H/I: Denies A/VH: Denies Sleep: Currently sleeping, see sleep assessment for total hours ADL's: Independent Group attendance: Were Meds taken: Yes Any med S/E: Some fine tremors where observed Mental Status Exam Appearance: Appropriate, wearing personal clothing Eye contact: Good, direct Behavior: Appropriate, cooperative, socializing Speech: audible, normal rate and rhythm Mood: Anxious, depressed Affect: Constricted, somewhat labile Thought process: Circumstantial Thought Content: Discharge, pain, medication Cognition: A/Ox3 Insight: Poor Judgment: Poor Interventions PRN's used: Ativan X1 Therapeutic interventions: 1:1 assessment, provided therapeutic communication and active listening, provided medication administration/education/ and monitoring its effects, encouraged her to shower and socialize w/peers, q15min safety checks. Restraints/seclusion/emergency medication: N/A Justification of Continued Inpatient Treatment: pt requires interruption of current crisis, is not able to formulate a plan for food or water, and requires medication adjustments in a safe and therapeutic environment.
[2020-04-19] MEDS: LORazepam 1 MG tablet PO PRN ×3 (04:27→20:53)
[2020-04-19] MEDS: aripiprazole 5mg tablet PO SCH (07:29)
[2020-04-19] MEDS: docusate sod 100mg capsule PO SCH ×2 (07:29→20:53)
[2020-04-19] MEDS: propranolol 10mg tablet PO SCH ×3 (07:30→20:53)
[2020-04-19] MEDS: venlafaxine XR 37.5mg cap (Q24H) PO SCH (07:30)
[2020-04-19] MEDS: amLODIPine 5mg tablet PO SCH (07:30)
[2020-04-19] MEDS: nicotine 21mg patch - 24 hr TD SCH (07:31)
[2020-04-19 07:38] LABS: ALANINE AMINOTRANSFERASE 73 U/L (12-78); ALBUMIN 3.2 G/DL (3.4-5.0); ALBUMIN/GLOBULIN RATIO 0.9 (1.1-1.5); ALKALINE PHOSPHATASE 95 IU/L (46-116); ANION GAP 7 (8-16); ASPARTATE AMINO TRANSFERASE 51 U/L (10-37); BILIRUBIN,TOTAL 0.4 MG/DL (0.1-1.0); BLOOD UREA NITROGEN 36 MG/DL (7-18); BUN/CREATININE RATIO 26.1 (6.6-38.0); CALCIUM 9.1 MG/DL (8.5-10.1); CHLORIDE 106 MMOL/L (99-107); CREATININE 1.38 MG/DL (0.40-0.90); GLUCOSE 83 MG/DL (70-104); POTASSIUM 4.7 MMOL/L (3.5-5.1); SODIUM 137 MMOL/L (135-145); TOTAL CARBON DIOXIDE 23.9 MMOL/L (24-32); TOTAL PROTEIN 6.9 G/DL (6.4-8.2); eGFR 39 ML/MIN
[2020-04-19] MEDS: magnesium hydroxide 30ml (MOM) UD suspension PO PRN (07:49)
[2020-04-19] MEDS: acetaminophen 325mg tablet PO PRN (07:49)
[2020-04-19 07:52] VITALS: BP 151/88
[2020-04-19 08:39] LABS: BASOPHILS % (AUTO) 0.8 % (0-1); EOSINOPHILS # (AUTO) 0.1 X10'3 (0-0.9); EOSINOPHILS % (AUTO) 1.2 % (0-6); HEMATOCRIT 39.6 % (35.0-45.0); HEMOGLOBIN 13.2 g/dl (12.0-16.0); LYMPHOCYTES # (AUTO) 1.8 X10'3 (1.1-4.8); LYMPHOCYTES % (AUTO) 37.4 % (21-51); MEAN CORPUSCULAR HGB CONC 33.4 g/dL (33.0-36.5); MEAN PLATELET VOLUME 7.8 FL (7.4-10.4); MONOCYTES # (AUTO) 0.4 X10'3 (0-0.9); MONOCYTES % (AUTO) 8.7 % (2-12); NEUTROPHILS # (AUTO) 2.5 X10'3 (1.8-7.7); NEUTROPHILS % (AUTO) 51.9 % (42-75); PLATELET COUNT 198 X10'3 (140-440); RED BLOOD COUNT 4.56 X10'6 (4.20-5.60); RED CELL DISTRIBUTION WIDTH 14.7 % (11.5-14.5); WHITE BLOOD COUNT 4.8 X10'3 (4.5-11.0)
--- NOTE | 2020-04-19 10:00 | NUR ---
Group Therapy: Process Group This Clinicians goals for this process group were as follows: (1) Ask scaling questions about Patients current anxiety, depression, and irritability symptoms as a check-in. (2) Share psychoeducation about the importance of being able to identify regular activities, support people, and thoughts (Anchors) that contribute to mental health well-being and stability. (3) Share psychoeducation about how the gradual removal of said activities, people and behaviors may lead to the erosion of mental well-being and stability. (4) Encourage Patients to identify support anchors that they need to maintain in their life that will promote their mental and emotional well-being. (5) Engage Patients in discussion of the topics shared within the group milieu. Patient identified experiencing the following levels of anxiety, depression, and anger/irritability while present in the group milieu. Anxiety: 06/17 Depression: 12/18 Anger/irritability: 06/17 Patient presented as open and cooperative within the group milieu. Patient was dressed in a nondescript dark crowell t-shirt with a burgundy, knee-length dress. Patient presented as verbally open and cooperative within the group milieu, as she actively shared thoughts, people, and activities/routines that she could utilize that would help keep her "emotionally-anchored," to a positive place of mental/emotional health. Patient presented as nonobtrusive within the group milieu. Jeremy Lozano MA, CANDE Addendum: 04/19/20 at 1122 by Jeremy Lozano SS Amended: Links added.
--- NOTE | 2020-04-19 10:53 | NUR ---
Nursing Progress Note: Legal hold: Voluntary Client on voluntary status for GD Report received from nurse with use of SBAR: Nena Paul RN Why are they here: Pt admitted for grave disability from the Crisis Center in [place]. A welfare check found her filthy with no food or water in a trailer. Pt has been at the crisis center for a few days and apparently has cleared a bit. Pt is unable to formulate a plan for food or water. She was confused and disoriented when officers contacted her with a well check. Pt voices paranoid and grandiose delusions about being in a secret mission but not being able to talk about it. Assessment What has happened this shift: Received patient awake in bed at the beginning of the shift, introduced self and established rapport. Pt. presents as cooperative, fatigued, anxious, guarded, and withdrawn. 1:1 completed at bedside, pt. reports ongoing anxiety and appears visibility anxious AEB fidgeting and leg bouncing during assessment. When this justowriter operator questioned her regarding the cause of her anxiety, pt. stated, "I've had it my whole life from PTSD." She is hoping that Propranolol, which she starting taking this morning will help. Pt. denies any S/I, and reports her depression is still present, however decreased. She feels that the Effexor is helping. Pt. is reporting many somatic complaints this shift, she is worried about decreased kidney function (pt. has only one kidney), CBC and CMP ordered per Dr. Ross. Creatinine and BUN are slightly increased, LORRIE Varma notified and scheduled Motrin previously discontinued. Pt. also c/o chronic back and shoulder pain, PRN Tylenol administered with appeared effectiveness AEB pt. resting comfortably. However, pt. continues to request stronger pain medication. She attended AM group this morning, and while there became increasingly anxious, PRN Ativan administered with effectiveness, will continue to monitor. S/I, H/I: Denies A/VH: Denies, does not appear internally preoccupied Sleep: Pt. reports that she awoke at approximately 0300 and had difficulty returning back to sleep, sleep hours are 9.5 ADL's: Independent Group attendance: Yes Were meds taken: Yes Any med S/E: None Mental Status Exam Appearance: Neat and appropriately dressed Eye contact: Good Behavior: Cooperative, fatigued, anxious, guarded, and withdrawn Speech: WNL Mood: Anxious Affect: Labile Thought process: Linear Thought Content: Preoccupation with ongoing anxiety with some somatic complaints Cognition: A&O X4 Insight: Fair Judgment: Fair Interventions PRN's used: Tylenol and Ativan Therapeutic interventions: Introduced self and established rapport, maintained a safe and supportive environment, ensured contract for safety, provided clear and simple instructions, monitored behavior and need for intervention, and maintained Q15min safety checks. Restraints/seclusion/emergency medication: N/A Justification of Continued Inpatient Treatment: Per Dr. Ross, pt. continues to require medication adjustments and a safe and supportive environment.
[2020-04-19 12:34] VITALS: BP 124/67
--- NOTE | 2020-04-19 16:05 | NUR ---
DISCHARGE: ART SPECIALIST ON SAT 04/20/20 AT 11 AM Trice will be picked up at 11 AM on Sat by [facility] and will be transported back to where she was staying. She can walk in at [facility] to connect to services. CANDE Razo
[2020-04-19 19:42] VITALS: BP 143/73
[2020-04-19] MEDS: traZODone 50mg tablet PO SCH (20:53)
--- NOTE | 2020-04-20 00:09 | NUR ---
Nursing Progress Note: Legal hold: Voluntary Client on involuntary status for GD/DTS. Report received from: RICCARDO Pérez with help from [facility] Why are they here: Pt admitted for grave disability from the [facility] in [place]. A welfare check found her filthy with no food or water in a trailer. Pt has been at the crisis center for a few days and apparently has cleared a bit. Pt is unable to formulate a plan for food or water. She was confused and disoriented when officers contacted her with a well check. Pt voices paranoid and grandiose delusions about being in a secret mission but not being able to talk about it. Assessment: What has happened this shift: Pt approached this check writer requesting something for flatulence and for her upset stomach. Pt states that she had a so-so day. She states that she is somewhat nervous about going home because of her landlord. She states that the reason she came here was because Lexy kept on insisting that there was something wrong with her and that she needed to get help. Eventually she told her to call the supervisor incising on her. She states that she is not so happy that she now has to be on medications but agrees that she will continue to take them. Reminded patient that she was very emotional and unstable when she first arrived here and states that the reason she was feeling like that is because of what was going on with her landlord and because she is going through menopause. Pt is goal oriented and has plans to move out of where she currently is living. She states that she plans on getting her license back and buying a car. 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 Pt states that her anxiety level is a 4/10 and is willing to wait a little longer to take any medication for it. She was cooperative during 1:1 physical assessment and took all her HS meds. Denies any A/VH, depression and Ativan was given for her anxiety. She stayed up a little longer watching TV before retiring to bed. S/I, H/I: Denies A/VH: Denies Sleep: Currently sleeping, see sleep assessment for total hours ADL's: Independent Group attendance: Were Meds taken: Yes Any med S/E: Some fine tremors where observed Mental Status Exam Appearance: Appropriate, wearing personal clothing Eye contact: Good, direct Behavior: Appropriate, cooperative, socializing Speech: audible, normal rate and rhythm Mood: Anxious, states she is nervous about going home, appears happy for the most part Affect: Constricted Thought process: Circumstantial Thought Content: Discharge, pain, medication, goal oriented Cognition: A/Ox3 Insight: Poor Judgment: Poor Interventions PRN's used: Ativan X1 Therapeutic interventions: 1:1 assessment, provided therapeutic communication and active listening, provided medication administration/education/ and monitoring its effects, encouraged her to shower and socialize w/peers, q15min safety checks. Restraints/seclusion/emergency medication: N/A Justification of Continued Inpatient Treatment: pt requires interruption of current crisis, is not able to formulate a plan for food or water, and requires medication adjustments in a safe and therapeutic environment.
[2020-04-20 07:41] VITALS: BP 129/84
[2020-04-20] MEDS: propranolol 10mg tablet PO SCH (07:52)
[2020-04-20] MEDS: docusate sod 100mg capsule PO SCH (07:52)
[2020-04-20] MEDS: amLODIPine 5mg tablet PO SCH (07:52)
[2020-04-20] MEDS: aripiprazole 5mg tablet PO SCH (07:52)
[2020-04-20] MEDS: venlafaxine XR 37.5mg cap (Q24H) PO SCH (07:53)
[2020-04-20] MEDS: nicotine 21mg patch - 24 hr TD SCH (07:56)
[2020-04-20] MEDS: LORazepam 1 MG tablet PO PRN (08:47)
[2020-04-20] MEDS: acetaminophen 325mg tablet PO PRN (08:47)
[2020-04-20] MEDS ORDERED: PROP10TA10 PO (10:51)
[2020-04-20] MEDS ORDERED: EFF37.5XRC PO (10:51)
[2020-04-20] MEDS ORDERED: NICO-668 BC (10:51)
[2020-04-20] MEDS ORDERED: NOR5T PO (10:51)
[2020-04-20] MEDS ORDERED: ARIP15TA8 PO (10:51)
[2020-04-20] MEDS ORDERED: TRAZ-251 PO (10:51)
[2020-04-20] MEDS ORDERED: NICO-687 TD (10:51)
--- NOTE | 2020-04-20 11:20 | NUR ---
Pt. discharged to home driven by [facility] class b driver. Pt. denies SI/HI, A/V hallucinations and is in no apparent distress. Pt. is calm and cooperative. RN f/u plan and medications. Pt.'s medications to be called into [facility] in [place]. Pt. verbalizes understanding. Pt.'s belongings returned to her. Pt. discharged with nicotine replacement.
== END 2020-04-20 11:20 | disposition home or self-care (01) | DRG 885 ==
LOC: ADULT MH 13:55
PROVIDERS: ADMIT Psychiatry & Neurology Psychiatry; ATTEND Psychiatry & Neurology Psychiatry
PROC: 3E0234Z Introduction of Serum, Toxoid and Vaccine into Muscle, Percutaneous Approach (ICD-10-PCS; principal; 2020-04-07)
DX: F20.9 Schizophrenia, unspecified (principal); E03.9 Hypothyroidism, unspecified; J44.9 Chronic obstructive pulmonary disease, unspecified; B18.2 Chronic viral hepatitis C; F17.210 Nicotine dependence, cigarettes, uncomplicated; G89.29 Other chronic pain; I10 Essential (primary) hypertension; K21.9 Gastro-esophageal reflux disease without esophagitis; M19.90 Unspecified osteoarthritis, unspecified site; M54.9 Dorsalgia, unspecified; Z23 Encounter for immunization; Z98.51 Tubal ligation status; Z95.5 Presence of coronary angioplasty implant and graft; Z71.6 Tobacco abuse counseling
CPT/HCPCS: 36415; 80053; 85025; 87081; 90732